=== PATIENT | female | born 1960 | race Caucasian/White ===

== ENCOUNTER → 2016-12-02 | Outpatient (CLI) | payer OTHER ==
[~2016-12-02] MED LIST: ASPIRIN81 M2 PO; B COMPLEX1 CA1 PO; CALCIUM + D 6001 TA1 PO; ESTROVEN ENERG1 EACH PO; POTASSIUM99 M1 PO; PRAVASTATIN SOD40 MG PO
--- NOTE | ~2016-12-02 | MY11 ---
[facility] A Service of 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 Referring Physician: Vaughn Chandler M.D. Ordering Physician: Vaughn Chandler M.D. Primary Care Physician: Vaughn Chandler M.D. MEDICAL IMAGING REPORT This report is preliminary unless electronic signature is present. EXAM Digital screening mammogram 12/02/16 [facility]. HISTORY 56-year-old woman. No risk elevation. Annual screen. COMPARISON Mammograms date to 05/06/05. Most recent screening 11/23/15. FINDINGS Digital imaging of each breast was completed utilizing screening protocol. Review includes FDA-approved CAD device. Breast parenchyma is predominantly fatty replaced. Mild residual parenchymal dominance is stable in the upper outer quadrant of the right breast. I see no suspicious mass. There are no interval occurring microcalcifications and no suspicious architectural deformity. IMPRESSION Negative mammogram. Annual screening recommended. Patients over the age of 40 are entered into a reminder system with target due date for the next mammogram. BIRADS: 1 Negative Dictated by... Roney Longo M.D. THIS IS AN ELECTRONICALLY VERIFIED REPORT Roney Longo M.D. at 12/05/2016 8:10 AM MAURICIOB/ekaterina [facility] A Service of [facility] RADIOLOGY TEXT RESULTS PATIENT: JAJA MIRZA LOCATION: [facility] : 58 UNIT #: [id number] AGE: [address]: Vaughn Chandler MD SEX: F ORDER DR: TD: 12/02/2016 10:24 JOB #: [id number] MEDICAL IMAGING REPORT Page 1 of 1
== END | disposition home or self-care (01) ==
LOC: SMAM 08:21
DX: Z12.31 Encounter for screening mammogram for malignant neoplasm of breast (principal)
CPT/HCPCS: G0202